=== PATIENT | female | born 1990 | race African-American/Black ===

== ENCOUNTER 2018-05-06 01:58 | Emergency (ER) | payer SELFPAY ==
[~2018-05-06] VITALS: Ht 172.7 cm; Wt 90.0 kg
[2018-05-06 02:02] VITALS: BP 118/82
== END 2018-05-06 02:45 | disposition left against medical advice (07) ==
LOC: ER 01:58
DX: Z53.21 Procedure and treatment not carried out due to patient leaving prior to being seen by health care provider (principal)

== ENCOUNTER 2021-02-21 07:20 | Emergency (ER) | payer SELFPAY ==
[~2021-02-21] VITALS: Ht 175.3 cm; Wt 82.0 kg
[2021-02-21] MEDS ORDERED: LIDOCAINE HCL/EPINEPHRINE 1%-EPI 1:100,000 20 ML VIAL INFIL ONE (08:45)
[2021-02-21] MEDS ORDERED: TETANUS, DIPHTHERIA, PERTUSSIS VAC/PF 0.5ML (>7YR OLD) IM ONE (08:45)
[2021-02-21] MEDS ORDERED: BACITRACIN ZINC OINT UDPKT TOP ONE (08:45)
[2021-02-21] MEDS ORDERED: IBUP-2028 MT (11:45)
[2021-02-21 11:54] VITALS: BP 111/76
== END 2021-02-21 11:58 | disposition home or self-care (01) ==
LOC: ER 07:35
DX: S01.81XA Laceration without foreign body of other part of head, initial encounter (principal); M79.632 Pain in left forearm; Y00.XXXA Assault by blunt object, initial encounter; Y93.89 Activity, other specified; Y92.89 Other specified places as the place of occurrence of the external cause
CPT/HCPCS: 12013; 70450; 73090; 90471; 90715; 99284; J3490

== ENCOUNTER 2024-07-05 10:00 | Emergency (ER) | payer SELFPAY ==
[~2024-07-05] VITALS: Ht 177.8 cm; Wt 80.0 kg
[~2024-07-05 10:00] MED LIST: IBUP-2028 MT
[2024-07-05 10:02] VITALS: O2SAT 99
[2024-07-05 13:41] VITALS: BP 130/84; PULSE 78; RESP 18; TEMP 36.78072; O2SAT 99
== END 2024-07-05 14:12 | disposition home or self-care (01) ==
LOC: ER 10:00
DX: B34.9 Viral infection, unspecified (principal); R05.9 Cough, unspecified; R09.81 Nasal congestion
CPT/HCPCS: 71045; 99283